=== PATIENT | male | born 1950 | race Caucasian/White ===

== ENCOUNTER 2019-02-11 16:27 | Inpatient (IN) | payer OTHER, MEDICARE ==
[~2019-02-11] VITALS: Ht 172.7 cm; Wt 65.6 kg
[~2019-02-11 16:27] MED LIST: ACET500 PO; Aspirin EC81 MG PO; DILT180ER PO; FISH OIL + D31 EACH PO; GABA300 PO; GENTEAL TEARS 015 ML BOTHEYES; Hair, Skin & N1 EACH PO; K-Phos Origina500 MG PO; LEVSOD75 PO; Oxybutynin Chlo10 MG PO; PANT20 PO; Prozac40 MG PO; TAMS.4ER PO; TRAM50 PO
[2019-02-11] MEDS ORDERED: Mag-Al Liquid30 ML PO (16:48)
[2019-02-11] MEDS ORDERED: CALCIUM 500 +1 EAC3 PO (16:49)
[2019-02-11] MEDS ORDERED: DICLOFENAC SOD100 G1 TOP (16:50)
[2019-02-11] MEDS ORDERED: Fish Oil 10001000 MG PO (18:43)
[2019-02-11 18:52] LABS: International Normalized Ratio 0.97; Prothrombin Time Results 10.3 Sec (9.7-11.5)
[2019-02-11 20:21] LABS: Hematocrit 37.8 % (37.0-53.0); Hemoglobin 12.7 g/dL (13.5-17.5); Mean Corpuscular HGB 28.9 pg (26.0-34.0); Mean Corpuscular HGB Conc 33.6 g/dL (31.5-36.5); Mean Corpuscular Volume 86 fL (80-100); Mean Platelet Volume 9.3 fL (9.1-12.4); Platelet Count 233 K/mm3 (150-400); RDW Coefficient Variation 11.9 % (11.7-14.2); RDW Standard Deviation 37.4 fL (35.1-46.3); White Blood Cell Count 6.07 K/mm3 (4.00-11.30)
[2019-02-11 20:39] LABS: Alanine Aminotransfer (ALT/SGP 25 U/L (12-78); Albumin, Blood 3.7 g/dL (3.4-5.0); Alk Phos 77 U/L (50-136); Anion Gap 4 mmol/L (6-16); Aspartate Aminotrans (AST/SGOT 33 U/L (12-37); Blood Urea Nitrogen 22 mg/dL (8-24); Bun/Creatinine Ratio 19.3 (12.0-20.0); CO2, Blood 41 mmol/L (21-32); Chloride, Blood 91 mmol/L (98-108); Creatinine, Blood 1.14 mg/dL (0.60-1.20); Globulin, Blood 3.7 g/dL (2.2-4.0); Glomerular Filtration Rate >60 (60-); Glucose, Blood 149 mg/dL (70-99); Potassium, Blood 3.1 mmol/L (3.5-5.5); Sodium, Blood 136 mmol/L (136-145); Total Protein, Blood 7.4 g/dL (6.4-8.2)
[2019-02-11 20:50] LABS: BAND PERCENT MAN 25 % (0-8); BASOPHILS PERCENT MAN 0 % (0-2); EOSINOPHILS PERCENT MAN 0 % (0-6); LYMPHOCYTES PERCENT MAN 5 % (21-46); METAMYELOCYTE ABSOLUTE MAN 0.06 K/mm3 (0.00-0.00); METAMYELOCYTE PERCENT MAN 1 % (0-0); MONOCYTES ABSOLUTE MAN 0.42 K/mm3 (0.16-1.47); MONOCYTES PERCENT MAN 7 % (4-13); NEUTROPHILS ABSOLUTE MAN 5.28 K/mm3 (1.96-9.15); SEG NEUTROPHILS PERCENT MAN 62 % (41-73); TOTAL CELLS COUNTED 100
[2019-02-12 00:37] LABS: Source, Urine Clean Catch
[2019-02-12 00:43] LABS: Bilirubin, Urine Neg (Neg); Blood, Urine 1+ (Neg); Glucose Qualitative, Urine Neg (Neg); Ketones, Urine Neg (Neg); Leukocyte Esterase, Urine Neg (Neg); Nitrite, Urine Neg (Neg); Protein, Urine 2+ (Neg); Urobilinogen, Urine NORM (Normal)
[2019-02-12 00:44] LABS: Appearance, Urine Clear (Clear); Color, Urine Yellow (P-Yellow)
[2019-02-12 00:52] LABS: Amorphous Mod (0-Heavy); Bacteria Not Seen /hpf; Granular Casts 0-2 /lpf (0); Red Blood Cells, Urine 0-2 /hpf (0-2); Squamous Epithelial Cells Not Seen /hpf (Few); White Blood Cells, Urine Not Seen /hpf (0-5)
[2019-02-12 00:57] LABS: Hematocrit 36.3 % (37.0-53.0); Mean Corpuscular HGB 28.1 pg (26.0-34.0); Mean Corpuscular HGB Conc 33.1 g/dL (31.5-36.5); Mean Corpuscular Volume 85 fL (80-100); Mean Platelet Volume 9.3 fL (9.1-12.4); Platelet Count 212 K/mm3 (150-400); RDW Coefficient Variation 12.2 % (11.7-14.2); RDW Standard Deviation 37.3 fL (35.1-46.3); Red Blood Cell Count 4.27 M/mm3 (4.30-5.90); White Blood Cell Count 3.98 K/mm3 (4.00-11.30)
[2019-02-12 01:16] LABS: Albumin, Blood 3.5 g/dL (3.4-5.0); Bilirubin, Total 1.9 mg/dL (0.1-1.0); Bun/Creatinine Ratio 18.6 (12.0-20.0); Calcium, Blood 8.7 mg/dL (8.5-10.1); Creatinine, Blood 1.29 mg/dL (0.60-1.20); Globulin, Blood 3.5 g/dL (2.2-4.0); Magnesium, Blood 4.1 mg/dL (1.6-2.4); Potassium, Blood 3.1 mmol/L (3.5-5.5)
[2019-02-12 01:21] LABS: BAND PERCENT MAN 32 % (0-8); BASOPHILS PERCENT MAN 0 % (0-2); EOSINOPHILS ABSOLUTE MAN 0.03 K/mm3 (0.00-0.68); EOSINOPHILS PERCENT MAN 1 % (0-6); LYMPHOCYTES ABSOLUTE MAN 0.27 K/mm3 (0.84-5.20); LYMPHOCYTES PERCENT MAN 7 % (21-46); MONOCYTES ABSOLUTE MAN 0.51 K/mm3 (0.16-1.47); MONOCYTES PERCENT MAN 13 % (4-13); NEUTROPHILS ABSOLUTE MAN 3.14 K/mm3 (1.96-9.15); SEG NEUTROPHILS PERCENT MAN 47 % (41-73); TOTAL CELLS COUNTED 100
--- NOTE | 2019-02-12 07:38 | NUR ---
a+o, pain not well controlled, ng tube draining green/brown fluid, using urinal in bed, call light in reach, xray and ekg done this am, comfort measures attempted to reduce pain, walking rounds done with day staff
--- NOTE | 2019-02-12 18:32 | NUR ---
SHIFT SUMMARY ADMITTED FOR SBO, MAY ALSO HAVE PANCREATITIS. PT IS FULL CODE. A SMALL BOWEL STUDY WAS PERFORMED TODAY. PT IS NPO EXCEPT FOR MEDS AND ICE CHIPS. PT HAS AN NG TUBE THAT WAS TURNED OFF WHEN RADIOLOGY RETRIEVED THE PT FOR IMAGING. PT'S FENTANYL WAS INCREASED TO 50 MCG TODAY. PT IS A&O X4. HE IS A 1 PERSON ASSIST FOR AT LEAST SHORT DISTANCES. PT IS MONITORED BY TELEMETRY/PCU NSR@86 BPM.
[2019-02-13 05:15] LABS: BASOPHILS ABSOLUTE AUTO 0.02 K/mm3 (0.00-0.23); BASOPHILS PERCENT AUTO 1 % (0-2); EOSINOPHILS ABSOLUTE AUTO 0.05 K/mm3 (0.00-0.68); EOSINOPHILS PERCENT AUTO 1 % (0-6); Hematocrit 40.6 % (37.0-53.0); Hemoglobin 12.7 g/dL (13.5-17.5); IMMATURE GRAN ABSOLUTE AUTO 0.01 K/mm3 (0.00-0.10); IMMATURE GRAN PERCENT AUTO 0 % (0-1); LYMPHOCYTES ABSOLUTE AUTO 0.68 K/mm3 (0.84-5.20); LYMPHOCYTES PERCENT AUTO 16 % (21-46); MONOCYTES ABSOLUTE AUTO 0.68 K/mm3 (0.16-1.47); MONOCYTES PERCENT AUTO 16 % (4-13); Mean Corpuscular HGB 28.3 pg (26.0-34.0); Mean Corpuscular HGB Conc 31.3 g/dL (31.5-36.5); Mean Platelet Volume 9.6 fL (9.1-12.4); NEUTROPHILS ABSOLUTE AUTO 2.78 K/mm3 (1.96-9.15); NEUTROPHILS PERCENT AUTO 66 % (41-73); Platelet Count 195 K/mm3 (150-400); RDW Coefficient Variation 12.3 % (11.7-14.2); RDW Standard Deviation 41.2 fL (35.1-46.3); Red Blood Cell Count 4.48 M/mm3 (4.30-5.90); White Blood Cell Count 4.22 K/mm3 (4.00-11.30)
[2019-02-13 05:17] LABS: Mean Corpuscular Volume 91 fL (80-100)
--- NOTE | 2019-02-13 05:28 | NUR ---
VSS, AFEBRILE, A/O, NG TUBE IN PLACE AND SET TO LOW INTT. SUCTION, PT SLEPT A FEW HOURS BETWEEN DOSES OF PAIN MEDICATION. NO N/V NOTED AFTER MEDICATION EARLY IN THE SHIFT. NO SIGNIFICANT CHANGES NOTED OVERNOC. WILL REPORT TO ON-COMING SHIFT.
[2019-02-13 05:43] LABS: Alanine Aminotransfer (ALT/SGP 34 U/L (12-78); Albumin, Blood 3.3 g/dL (3.4-5.0); Albumin/Globulin Ratio 0.8 (0.8-1.8); Alk Phos 70 U/L (50-136); Amylase, Blood 45 U/L (25-115); Anion Gap 6 mmol/L (6-16); Aspartate Aminotrans (AST/SGOT 40 U/L (12-37); Bilirubin, Total 1.8 mg/dL (0.1-1.0); Blood Urea Nitrogen 27 mg/dL (8-24); Bun/Creatinine Ratio 26.2 (12.0-20.0); CO2, Blood 35 mmol/L (21-32); Calcium, Blood 8.6 mg/dL (8.5-10.1); Chloride, Blood 103 mmol/L (98-108); Creatinine, Blood 1.03 mg/dL (0.60-1.20); Globulin, Blood 4.1 g/dL (2.2-4.0); Glomerular Filtration Rate >60 (60-); Glucose, Blood 107 mg/dL (70-99); Magnesium, Blood 3.3 mg/dL (1.6-2.4); Potassium, Blood 3.2 mmol/L (3.5-5.5); Sodium, Blood 144 mmol/L (136-145); Total Protein, Blood 7.4 g/dL (6.4-8.2)
--- NOTE | 2019-02-13 16:47 | NUR ---
ENEMA GIVEN ONE LIQUID BM. RED IN COLOR WITH ONE SOLID CHUNK THE SIZE OF A 50 CENT PIECE PASSED.
--- NOTE | 2019-02-13 17:14 | NUR ---
SHIFT SUMMARY ADMITTED FOR SBO. PT IS FULL CODE. DILAUDID ADDED TO EMAR TO HELP CONTROL ABD PAIN. PT HAS AN SBO W/ PANCREATIC INVOLVEMENT. A FLEET ENEMA WAS ADMINISTERED. MAROON WATERY FLUID PASSED W/ONE CHUNK THE SIZE OF A 50 CENT PIECE. PT IS STILL NPO. PT REPORTS DILAUDID WORKS BETTER THAN FENTANYL TO CONTROL HIS PAIN. PT HAS A HX OF SIGMOID VOLULUS AND ETOH.
[2019-02-14 04:57] LABS: BASOPHILS ABSOLUTE AUTO 0.01 K/mm3 (0.00-0.23); BASOPHILS PERCENT AUTO 0 % (0-2); EOSINOPHILS ABSOLUTE AUTO 0.09 K/mm3 (0.00-0.68); EOSINOPHILS PERCENT AUTO 2 % (0-6); Hematocrit 37.3 % (37.0-53.0); Hemoglobin 11.9 g/dL (13.5-17.5); IMMATURE GRAN ABSOLUTE AUTO 0.01 K/mm3 (0.00-0.10); IMMATURE GRAN PERCENT AUTO 0 % (0-1); LYMPHOCYTES ABSOLUTE AUTO 0.46 K/mm3 (0.84-5.20); LYMPHOCYTES PERCENT AUTO 12 % (21-46); MONOCYTES ABSOLUTE AUTO 0.52 K/mm3 (0.16-1.47); MONOCYTES PERCENT AUTO 13 % (4-13); Mean Corpuscular HGB Conc 31.9 g/dL (31.5-36.5); Mean Corpuscular Volume 91 fL (80-100); Mean Platelet Volume 9.5 fL (9.1-12.4); NEUTROPHILS ABSOLUTE AUTO 2.91 K/mm3 (1.96-9.15); NEUTROPHILS PERCENT AUTO 73 % (41-73); Platelet Count 184 K/mm3 (150-400); RDW Coefficient Variation 12.1 % (11.7-14.2); RDW Standard Deviation 40.7 fL (35.1-46.3); Red Blood Cell Count 4.11 M/mm3 (4.30-5.90)
--- NOTE | 2019-02-14 05:28 | NUR ---
VSS, AFEBRILE, A/O, NG TUBE TO LOW INT. SUCTIONS, PT SLEPT WELL OVER NOC, C/O ABD PAIN RESOLVED EASILY WITH PRN DILAUDID PER ORDER. NO SIGNIFICANT CHANGES NOTED. WILL REPORT TO ON-COMING SHIFT.
[2019-02-14 05:42] LABS: Amylase, Blood 233 U/L (25-115)
[2019-02-14 05:46] LABS: Alanine Aminotransfer (ALT/SGP 33 U/L (12-78); Albumin/Globulin Ratio 0.8 (0.8-1.8); Alk Phos 66 U/L (50-136); Anion Gap 7 mmol/L (6-16); Aspartate Aminotrans (AST/SGOT 26 U/L (12-37); Bilirubin, Total 1.5 mg/dL (0.1-1.0); Blood Urea Nitrogen 28 mg/dL (8-24); Bun/Creatinine Ratio 31.2 (12.0-20.0); CO2, Blood 31 mmol/L (21-32); Calcium, Blood 8.5 mg/dL (8.5-10.1); Chloride, Blood 112 mmol/L (98-108); Globulin, Blood 3.7 g/dL (2.2-4.0); Glomerular Filtration Rate >60 (60-); Glucose, Blood 96 mg/dL (70-99); Potassium, Blood 3.3 mmol/L (3.5-5.5); Sodium, Blood 150 mmol/L (136-145); Total Protein, Blood 6.7 g/dL (6.4-8.2)
--- NOTE | 2019-02-14 18:18 | NUR ---
SHIFT SUMMARY NO ACUTE CHANGES. DR. YIN MET WITH PATIENT THIS MORNING. PATIENT TO HAVE XRAY AND POSSIBLY SURGERY IN THE AM. PATIENT MEDICATED FOR PAIN SEVERAL TIMES THIS SHIFT. NG TUBE TO LOW INTERMITTENT SUCTION. OSHEA PLACED DUE TO RETENTION. CALL LIGHT IN REACH, WILL CONTINUE TO MONITOR.
[2019-02-15 05:13] LABS: BASOPHILS ABSOLUTE AUTO 0.01 K/mm3 (0.00-0.23); BASOPHILS PERCENT AUTO 0 % (0-2); EOSINOPHILS ABSOLUTE AUTO 0.04 K/mm3 (0.00-0.68); EOSINOPHILS PERCENT AUTO 2 % (0-6); Hematocrit 36.4 % (37.0-53.0); Hemoglobin 11.7 g/dL (13.5-17.5); IMMATURE GRAN ABSOLUTE AUTO 0.02 K/mm3 (0.00-0.10); IMMATURE GRAN PERCENT AUTO 1 % (0-1); LYMPHOCYTES ABSOLUTE AUTO 0.43 K/mm3 (0.84-5.20); LYMPHOCYTES PERCENT AUTO 19 % (21-46); MONOCYTES ABSOLUTE AUTO 0.36 K/mm3 (0.16-1.47); MONOCYTES PERCENT AUTO 16 % (4-13); Mean Corpuscular HGB 28.5 pg (26.0-34.0); Mean Corpuscular HGB Conc 32.1 g/dL (31.5-36.5); Mean Corpuscular Volume 89 fL (80-100); Mean Platelet Volume 9.6 fL (9.1-12.4); NEUTROPHILS ABSOLUTE AUTO 1.37 K/mm3 (1.96-9.15); NEUTROPHILS PERCENT AUTO 62 % (41-73); Platelet Count 185 K/mm3 (150-400); RDW Standard Deviation 39.1 fL (35.1-46.3); White Blood Cell Count 2.23 K/mm3 (4.00-11.30)
[2019-02-15 05:33] LABS: Albumin, Blood 2.9 g/dL (3.4-5.0); Anion Gap 7 mmol/L (6-16); Blood Urea Nitrogen 24 mg/dL (8-24); Bun/Creatinine Ratio 30.2 (12.0-20.0); CO2, Blood 29 mmol/L (21-32); Calcium, Blood 8.7 mg/dL (8.5-10.1); Chloride, Blood 112 mmol/L (98-108); Glomerular Filtration Rate >60 (60-); Glucose, Blood 153 mg/dL (70-99); Magnesium, Blood 2.5 mg/dL (1.6-2.4); Phosphorus, Blood 2.1 mg/dL (2.5-4.9); Potassium, Blood 3.4 mmol/L (3.5-5.5); Sodium, Blood 148 mmol/L (136-145)
--- NOTE | 2019-02-15 05:57 | NUR ---
SHIFT SUMMARY PT CONTINUED TO REPORT ABLE PAIN/DISCOMFORT THIS EVENING. RATING IT AT 6-8/10. MEDICATED EVERY 2-4 HOURS WITH 1 MG IV DILAUDID REQUESTED BY PT. NG TUBE IN PLACE, HOOKED UP TO LOW INTERMITTENT SUCTION. DRAINING A MODERATE AMOUNT WITH APPROX 500 ML OUT OF GREEN SLIGHTLY PINK GASTRIC FLUID. NO NAUSEA REPORTED. PT NPO EXCEPT ICE CHIPS. REPORTS HE IS TOO WEAK AND TERRIBLE FEELING TO GET OUT OF BED. OSHEA REMAINS IN PLACE. DRAINING LIGHT YELLOW URINE. PLAN FOR XRAYS THIS AM AND POSSIBLE SURGERY. AT BEDSIDE THIS AM. VSS. WILL CONTINUE TO MONITOR.
--- NOTE | 2019-02-15 11:07 | NUR ---
PT TRANSFERED PT TAKEN TO SURGERY AT 1030. PT IN STABLE CONDITION. HYDRALAZINE GIVEN TO HELP BRING DOWN BP. DELINQUENT TAX COLLECTOR ASSISTANT STATES PT IS TACHY. PT REFUSED ORAL MEDICATIONS THIS AM DUE TO WANTING HIS SUCTION TO CONTINUE. OTHER VITALS STABLE. BESIDE REPORT GIVEN TO SCOTT, THREAD MILLING MACHINE SET UP OPERATOR & LORENA RN. PERSONAL ITEMS DELIVERED TO 231 BY THIS RN. NO OTHER CHANGES IN ASSESSMENT BEFORE PT LEFT FOR SURGERY. 1 MG IV DILADID GIVEN FOR PAIN THIS AM.
--- NOTE | 2019-02-15 12:53 | NUR ---
PT FROM OR PT TO FLOOR FROM OR AT APPROX 1230. PT SLEEPING IN BED, COMFORTABLE. CALL LIGHT IN REACH.
--- NOTE | 2019-02-15 17:22 | NUR ---
SHIFT SUMMARY PT FROM OR AT 1236. NG TUBE ON LOW INTERMITENT SUCTION. PT HAD FEVER, NEW ORDER FOR TORODOL, GIVEN PER EMAR. PAIN AND FEVER MANAGED. SURGICAL DRESSING IN PLACE. WOUND VAC IN PLACE NO DRAINAGE AT THIS TIME. OSHEA IN PLACE.
--- NOTE | 2019-02-16 05:04 | NUR ---
SHIFT SUMMARY PT POD#1. AAOX4. DISCOMFORT CONTROLLED WITH 1MG IV DILAUDID X2 THIS SHIFT. NO NAUSEA/EMESIS. ABD INCISION WITH PREVENA C/D/I, NO DRAINAGE. ABD BINDER IN PLACE. OSHEA SECURE/DRAINING YELLOW. NGT WITH MODERATE AMOUNT GREEN OUT. PT RESTING WELL THIS AM. CALL LIGHT IN REACH + PT USES FOR ASSISTANCE.
[2019-02-16 05:05] LABS: Hematocrit 38.1 % (37.0-53.0); Mean Corpuscular HGB 28.1 pg (26.0-34.0); Mean Corpuscular HGB Conc 31.5 g/dL (31.5-36.5); Mean Corpuscular Volume 89 fL (80-100); Mean Platelet Volume 9.9 fL (9.1-12.4); Platelet Count 195 K/mm3 (150-400); RDW Coefficient Variation 12.1 % (11.7-14.2); RDW Standard Deviation 39.6 fL (35.1-46.3); Red Blood Cell Count 4.27 M/mm3 (4.30-5.90)
[2019-02-16 05:35] LABS: Albumin, Blood 2.7 g/dL (3.4-5.0); Anion Gap 7 mmol/L (6-16); Blood Urea Nitrogen 24 mg/dL (8-24); Bun/Creatinine Ratio 28.2 (12.0-20.0); CO2, Blood 28 mmol/L (21-32); Calcium, Blood 8.5 mg/dL (8.5-10.1); Chloride, Blood 114 mmol/L (98-108); Creatinine, Blood 0.85 mg/dL (0.60-1.20); Glomerular Filtration Rate >60 (60-); Glucose, Blood 126 mg/dL (70-99); Phosphorus, Blood 2.4 mg/dL (2.5-4.9); Potassium, Blood 3.5 mmol/L (3.5-5.5); Sodium, Blood 149 mmol/L (136-145)
[2019-02-16 05:40] LABS: BAND PERCENT MAN 20 % (0-8); BASOPHILS PERCENT MAN 0 % (0-2); EOSINOPHILS PERCENT MAN 0 % (0-6); LYMPHOCYTES ABSOLUTE MAN 0.57 K/mm3 (0.84-5.20); LYMPHOCYTES PERCENT MAN 17 % (21-46); MONOCYTES ABSOLUTE MAN 0.44 K/mm3 (0.16-1.47); MONOCYTES PERCENT MAN 13 % (4-13); NEUTROPHILS ABSOLUTE MAN 2.38 K/mm3 (1.96-9.15); SEG NEUTROPHILS PERCENT MAN 50 % (41-73); TOTAL CELLS COUNTED 100
--- NOTE | 2019-02-16 10:17 | NUR ---
hallucinations PT REPORTS BELIEVES DILAUDID IS CAUSING HALLUCINATIONS. REPORTS SEEING BEES IN ROOM AND ROOM IS CHANGING SIZE AND SHAPE. NOTIFED DR CARLSON AND REQUESTED DIFFERENT IV PAIN MEDICATION.
--- NOTE | 2019-02-16 18:29 | NUR ---
SUMMARY NO ACUTE CHANGES T/O SHIFT. PT'S NG OUTPUT MAINLY CLEAR FLUID. NG TO R NARES AND TO LIS. PT HAS C/O OF CROSS AND ABD PAIN T/O SHIFT. MEDICATED PER ORDERS FOR BOTH. PT HAS BEEN HYPERTENSIVE, DR AWARE AND CHANGED APRESOLINE TO SCHEDULED Q6. PT RESTING ON L SIDE AT THIS TIME. CALL LIGHT IN REACH.
[2019-02-17 05:17] LABS: BASOPHILS ABSOLUTE AUTO 0.02 K/mm3 (0.00-0.23); BASOPHILS PERCENT AUTO 0 % (0-2); Hematocrit 38.9 % (37.0-53.0); Hemoglobin 12.4 g/dL (13.5-17.5); LYMPHOCYTES PERCENT AUTO 14 % (21-46); MONOCYTES ABSOLUTE AUTO 0.53 K/mm3 (0.16-1.47); MONOCYTES PERCENT AUTO 10 % (4-13); Mean Corpuscular HGB 28.1 pg (26.0-34.0); Mean Corpuscular HGB Conc 31.9 g/dL (31.5-36.5); Mean Corpuscular Volume 88 fL (80-100); Mean Platelet Volume 10.2 fL (9.1-12.4); Platelet Count 233 K/mm3 (150-400); RDW Coefficient Variation 12.3 % (11.7-14.2); RDW Standard Deviation 39.5 fL (35.1-46.3); Red Blood Cell Count 4.42 M/mm3 (4.30-5.90); White Blood Cell Count 5.09 K/mm3 (4.00-11.30)
[2019-02-17 05:21] LABS: EOSINOPHILS ABSOLUTE AUTO 0.17 K/mm3 (0.00-0.68); EOSINOPHILS PERCENT AUTO 3 % (0-6); IMMATURE GRAN ABSOLUTE AUTO 0.07 K/mm3 (0.00-0.10); IMMATURE GRAN PERCENT AUTO 1 % (0-1); NEUTROPHILS PERCENT AUTO 71 % (41-73)
[2019-02-17 05:43] LABS: Albumin, Blood 2.5 g/dL (3.4-5.0); Anion Gap 8 mmol/L (6-16); Blood Urea Nitrogen 24 mg/dL (8-24); Bun/Creatinine Ratio 30.4 (12.0-20.0); CO2, Blood 25 mmol/L (21-32); Calcium, Blood 8.5 mg/dL (8.5-10.1); Chloride, Blood 112 mmol/L (98-108); Creatinine, Blood 0.79 mg/dL (0.60-1.20); Glomerular Filtration Rate >60 (60-); Glucose, Blood 122 mg/dL (70-99); Phosphorus, Blood 2.3 mg/dL (2.5-4.9); Potassium, Blood 3.3 mmol/L (3.5-5.5); Sodium, Blood 145 mmol/L (136-145)
[2019-02-17 05:49] LABS: BAND PERCENT MAN 8 % (0-8); BASOPHILS ABSOLUTE MAN 0.05 K/mm3 (0.00-0.23); BASOPHILS PERCENT MAN 1 % (0-2); EOSINOPHILS ABSOLUTE MAN 0.05 K/mm3 (0.00-0.68); EOSINOPHILS PERCENT MAN 1 % (0-6); LYMPHOCYTES ABSOLUTE MAN 0.55 K/mm3 (0.84-5.20); LYMPHOCYTES PERCENT MAN 11 % (21-46); METAMYELOCYTE ABSOLUTE MAN 0.05 K/mm3 (0.00-0.00); METAMYELOCYTE PERCENT MAN 1 % (0-0); MONOCYTES PERCENT MAN 8 % (4-13); MYELOCYTE PERCENT MAN 2 % (0-0); NEUTROPHILS ABSOLUTE MAN 3.86 K/mm3 (1.96-9.15); SEG NEUTROPHILS PERCENT MAN 68 % (41-73); TOTAL CELLS COUNTED 100
--- NOTE | 2019-02-17 06:39 | NUR ---
POD 2 S/P EXP LAP. PT BP REMAINED ELEVATED T/O NIGHT, HR TACHY LOW 100'S. PT DENIED CP/PRESSURE, DID C/O HEADACHE. SCHEDULED HYDRALAZINE GIVEN W/MINIMAL EFFECT NOTED. DRESSING CDI. PAIN MGD W/TORADOL W/REP RELIEF, PT DECLINING NARCOTIC MEDS. BT HYPO, NGT DRAINING CLEAR LIQ, PT DENIED N/V, REP NO FLATUS YET. DORIE MUÑOZ, CLINIMIX CONT PER ORDERS. PT USING CALL LIGHT FOR ASSISTANCE, WILL CONT TO MONITOR UNTIL REP GIVEN TO ONCOMING RN.
--- NOTE | 2019-02-17 14:08 | NUR ---
pt had advance directive [facility] with the [facility]. copy on chart and to medical records
--- NOTE | 2019-02-17 14:15 | NUR ---
Symptom assessment of patient . He has amild headache patient today which is unusual. No ringing in ears or balance disturbance. swallowing is moderate. He wears dentures and they are getting loose due to weight loss. no dyspnea but with NG breathing feels a little tight. Pt Feels tight and very sore in abdomen. Pt states he has PTSD and is anxious and has a startle response. He works out regularly and is anxious to get back to his routine. We reviewed his symptoma nd pain and recovery and what he has been to before. He is feeling more sore and painful today. We reviewed medications and recovery phase. We discussed taking the tylenol in low dose, we reviewed adjunctive therapies for diversiona and increasing mobility. suggested [facility] pain class for support. we reviewed visualization and massage and to see what [facility] will cover. We reviewed sleep hygiene and anexiety. He wants to speak to diety consult ordered.
--- NOTE | 2019-02-17 18:28 | NUR ---
SUMMARY NO ACUTE CHANGES T/O SHIFT. NG PRODUCING CLEARISH LIGHT [place] FLUID. DENIES NAUSEA. MAIN COMPLAINT DURING SHIFT WAS CROSS. MEDICATED PER ORDERS W/TORADOL. OSHEA CATH DC'D THIS EVENING PER ORDERS. IV FLUIDS INFUSING PER ORDERS. CALL LIGHT IN REACH.
[2019-02-18 05:11] LABS: BASOPHILS ABSOLUTE AUTO 0.02 K/mm3 (0.00-0.23); BASOPHILS PERCENT AUTO 0 % (0-2); EOSINOPHILS ABSOLUTE AUTO 0.23 K/mm3 (0.00-0.68); EOSINOPHILS PERCENT AUTO 3 % (0-6); Hematocrit 37.4 % (37.0-53.0); Hemoglobin 12.1 g/dL (13.5-17.5); IMMATURE GRAN ABSOLUTE AUTO 0.11 K/mm3 (0.00-0.10); IMMATURE GRAN PERCENT AUTO 2 % (0-1); LYMPHOCYTES ABSOLUTE AUTO 0.95 K/mm3 (0.84-5.20); LYMPHOCYTES PERCENT AUTO 14 % (21-46); MONOCYTES ABSOLUTE AUTO 0.53 K/mm3 (0.16-1.47); MONOCYTES PERCENT AUTO 8 % (4-13); Mean Corpuscular HGB 27.8 pg (26.0-34.0); Mean Corpuscular HGB Conc 32.4 g/dL (31.5-36.5); Mean Corpuscular Volume 86 fL (80-100); Mean Platelet Volume 10.1 fL (9.1-12.4); NEUTROPHILS ABSOLUTE AUTO 5.13 K/mm3 (1.96-9.15); NEUTROPHILS PERCENT AUTO 74 % (41-73); Platelet Count 227 K/mm3 (150-400); RDW Coefficient Variation 12.6 % (11.7-14.2); RDW Standard Deviation 39.2 fL (35.1-46.3); Red Blood Cell Count 4.36 M/mm3 (4.30-5.90); White Blood Cell Count 6.97 K/mm3 (4.00-11.30)
[2019-02-18 05:32] LABS: Albumin, Blood 2.4 g/dL (3.4-5.0); Anion Gap 8 mmol/L (6-16); Blood Urea Nitrogen 24 mg/dL (8-24); Bun/Creatinine Ratio 29.2 (12.0-20.0); CO2, Blood 27 mmol/L (21-32); Calcium, Blood 8.3 mg/dL (8.5-10.1); Chloride, Blood 111 mmol/L (98-108); Creatinine, Blood 0.82 mg/dL (0.60-1.20); Glomerular Filtration Rate >60 (60-); Glucose, Blood 115 mg/dL (70-99); Phosphorus, Blood 3.2 mg/dL (2.5-4.9); Potassium, Blood 3.1 mmol/L (3.5-5.5); Sodium, Blood 146 mmol/L (136-145)
--- NOTE | 2019-02-18 06:08 | NUR ---
POD 3 S/P EXP LAP. PT BR REMAINED ELEVATED, PT DENIED CP/PRESSURE/SOB. OTHER VSS. DRESSING CDI. PT REQ TORADOL AND TYLENOL ONLY FOR PAIN MGMT. NGT DRAINING 200ML CLEAR LIQ, PT REP PASSING FLATUS X1, DENIED N/V. PT USING URINAL TO VOID. CLINIMIX CONT PER ORDERS. PT DECLINING TO GET OOB THIS SHIFT, PT EDUCATED ON BENEFITS OF AMBULATION. PT USING CALL LIGHT FOR ASSISTANCE, WILL CONT TO MONITOR UNTIL REP GIVEN TO ONCOMING RN.
--- NOTE | 2019-02-18 13:53 | NUR ---
NG DR YIN IN TO SEE PATIENT. NG CLAMPED AT THIS TIME. DISCUSSED WITH PATIENT TO LET ME KNOW IF BECOMES NAUSEATED, INCREASED ABD PAIN OR BLOATING WITH NG CLAMPED
--- NOTE | 2019-02-18 17:52 | NUR ---
SUMMARY NG REMAINS CLAMPED SINCE 1353 AND PATIENT DENIES NAUSEA OR INCREASED ABD PAIN. PATIENT AMBULATED IN HALLS X2 AND SAT IN CHAIR X2. PAIN CONTROLLED WITH PO MEDS
[2019-02-19 04:49] LABS: BASOPHILS ABSOLUTE AUTO 0.06 K/mm3 (0.00-0.23); BASOPHILS PERCENT AUTO 1 % (0-2); EOSINOPHILS ABSOLUTE AUTO 0.27 K/mm3 (0.00-0.68); EOSINOPHILS PERCENT AUTO 3 % (0-6); Hematocrit 37.5 % (37.0-53.0); Hemoglobin 12.2 g/dL (13.5-17.5); IMMATURE GRAN ABSOLUTE AUTO 0.21 K/mm3 (0.00-0.10); IMMATURE GRAN PERCENT AUTO 2 % (0-1); LYMPHOCYTES ABSOLUTE AUTO 1.34 K/mm3 (0.84-5.20); LYMPHOCYTES PERCENT AUTO 15 % (21-46); MONOCYTES ABSOLUTE AUTO 0.53 K/mm3 (0.16-1.47); MONOCYTES PERCENT AUTO 6 % (4-13); Mean Corpuscular HGB 28.4 pg (26.0-34.0); Mean Corpuscular HGB Conc 32.5 g/dL (31.5-36.5); Mean Corpuscular Volume 87 fL (80-100); Mean Platelet Volume 10.2 fL (9.1-12.4); NEUTROPHILS PERCENT AUTO 74 % (41-73); Platelet Count 258 K/mm3 (150-400); RDW Coefficient Variation 12.7 % (11.7-14.2); RDW Standard Deviation 40.3 fL (35.1-46.3); White Blood Cell Count 9.11 K/mm3 (4.00-11.30)
[2019-02-19 05:08] LABS: Albumin, Blood 2.5 g/dL (3.4-5.0); Anion Gap 8 mmol/L (6-16); Blood Urea Nitrogen 24 mg/dL (8-24); Bun/Creatinine Ratio 31.2 (12.0-20.0); CO2, Blood 25 mmol/L (21-32); Calcium, Blood 8.2 mg/dL (8.5-10.1); Chloride, Blood 110 mmol/L (98-108); Creatinine, Blood 0.77 mg/dL (0.60-1.20); Glomerular Filtration Rate >60 (60-); Glucose, Blood 112 mg/dL (70-99); Phosphorus, Blood 2.8 mg/dL (2.5-4.9); Potassium, Blood 3.1 mmol/L (3.5-5.5); Sodium, Blood 143 mmol/L (136-145)
--- NOTE | 2019-02-19 07:37 | NUR ---
SHIFT SUMMARY PT A&O X4 T/O SHIFT. POD#4 LYSIS OF ABD ADHESIONS; PREVENA SEAL INTACT. ABD SOFT. NPO EXCEPT ICE CHIP AND MEDS PER ORDERS. PAIN IN ABD WELL MANAGED; PT REPORTED "HEADACHE" T/O SHIFT; HOT/COOL CLOTHES TO HEAD FOR COMFORT PER PT REQUESTS. NGT CLAMED PER ORDERS; PT TOLERATED WELL. BP MANAGED PER EMAR. RA; PT DENIES SOB; TELEMETRY IN PLACE; NSR PER DAY CARE DIRECTOR. SCD'S TO BLE'S. CALL LIGHT IN REACH; PT DEMONSTRATES USE. REPORT GIVEN TO DAY SHIFT RN.
--- NOTE | 2019-02-19 13:56 | NUR ---
NG TUBE D/C'D AT THIS TIME PER DR YIN'S V.O. PATIENT TOLERATED WELL.
--- NOTE | 2019-02-20 05:27 | NUR ---
SHIFT SUMMARY PT A&O X 4 T/O SHIFT. NO ACUTE CHANGES. POD#5 LYSIS OF ADHESIONS; ABD SOFT; PT DENIED NAUSEA T/O SHIFT. ABD PAIN AND PT C/O "HEAD ACHE" MANAGED PER EMAR. PT BP MANAGED PER EMAR. TELEMETRY IN PLACE; NSR/ST T/O SHIFT. HUMAN CAPITAL CONSULTANT REPORTED PT HR INCREASED TO 120 X1; PT AMBULATING AT TIME; HR DECREASED TO SR UNDER 100 WITH REST. PT TOLERATING CLEARS WELL. SCD'S TO BLE'S. CALL LIGHT IN REACH; PT DEMONSTRATES USE. WCTM UNTIL REPORT TO DAY SHIFT RN.
[2019-02-20 06:15] LABS: Albumin, Blood 2.3 g/dL (3.4-5.0); Anion Gap 8 mmol/L (6-16); Blood Urea Nitrogen 23 mg/dL (8-24); CO2, Blood 24 mmol/L (21-32); Calcium, Blood 7.9 mg/dL (8.5-10.1); Chloride, Blood 106 mmol/L (98-108); Creatinine, Blood 0.82 mg/dL (0.60-1.20); Glomerular Filtration Rate >60 (60-); Glucose, Blood 109 mg/dL (70-99); Phosphorus, Blood 2.8 mg/dL (2.5-4.9); Potassium, Blood 3.1 mmol/L (3.5-5.5); Sodium, Blood 138 mmol/L (136-145)
--- NOTE | 2019-02-20 18:59 | NUR ---
SHIFT SUMMARY PATIENT IMPROVED T/O SHIFT. CROSS RESOLVED. UP TO CHAIR, THEN AMBULATED IN HALLS. VOIDING, HAD BM. + FLATUS. TOLERATING CL W/O C/O. PROVENA WOUND VAC D/C'D BY DR YIN TODAY. INCISION W/ VICKY, INTACT, CLEAR. NO C/O AT THIS TIME. D/C ORDERS REC'D FOR TOMORROW.
[2019-02-21 04:26] LABS: BASOPHILS ABSOLUTE AUTO 0.03 K/mm3 (0.00-0.23); BASOPHILS PERCENT AUTO 0 % (0-2); EOSINOPHILS ABSOLUTE AUTO 0.23 K/mm3 (0.00-0.68); EOSINOPHILS PERCENT AUTO 3 % (0-6); Hematocrit 33.8 % (37.0-53.0); Hemoglobin 11.1 g/dL (13.5-17.5); IMMATURE GRAN ABSOLUTE AUTO 0.25 K/mm3 (0.00-0.10); IMMATURE GRAN PERCENT AUTO 3 % (0-1); LYMPHOCYTES ABSOLUTE AUTO 0.92 K/mm3 (0.84-5.20); LYMPHOCYTES PERCENT AUTO 11 % (21-46); MONOCYTES ABSOLUTE AUTO 0.49 K/mm3 (0.16-1.47); MONOCYTES PERCENT AUTO 6 % (4-13); Mean Corpuscular HGB Conc 32.8 g/dL (31.5-36.5); Mean Corpuscular Volume 85 fL (80-100); Mean Platelet Volume 10.2 fL (9.1-12.4); NEUTROPHILS ABSOLUTE AUTO 6.54 K/mm3 (1.96-9.15); NEUTROPHILS PERCENT AUTO 77 % (41-73); Platelet Count 244 K/mm3 (150-400); RDW Coefficient Variation 12.3 % (11.7-14.2); RDW Standard Deviation 37.8 fL (35.1-46.3); Red Blood Cell Count 3.96 M/mm3 (4.30-5.90); White Blood Cell Count 8.46 K/mm3 (4.00-11.30)
[2019-02-21 04:49] LABS: Albumin, Blood 2.3 g/dL (3.4-5.0); Anion Gap 7 mmol/L (6-16); Blood Urea Nitrogen 15 mg/dL (8-24); Bun/Creatinine Ratio 18.2 (12.0-20.0); CO2, Blood 24 mmol/L (21-32); Calcium, Blood 7.9 mg/dL (8.5-10.1); Chloride, Blood 106 mmol/L (98-108); Creatinine, Blood 0.83 mg/dL (0.60-1.20); Glomerular Filtration Rate >60 (60-); Glucose, Blood 95 mg/dL (70-99); Magnesium, Blood 1.9 mg/dL (1.6-2.4); Phosphorus, Blood 2.7 mg/dL (2.5-4.9); Potassium, Blood 3.4 mmol/L (3.5-5.5); Sodium, Blood 137 mmol/L (136-145)
--- NOTE | 2019-02-21 07:51 | NUR ---
SUMMARY PT VOIDING AND HAVING FORMED BMS. NO C/O NAUSEA. TAKING PO TRAMADOL FOR H/A AND GENERALIZED DISCOMFORT. ABD INC CLR AND INTACT. PT HAS DISCHARGE ORDERS PER DR YIN. PT WITH LO GRADE TEMP TONIGHT. I ADVISED DR STEVENS OF THIS WHEN ALREADY SPEAKING TO HIM. PT RECEIVING IV MEDS Q 6 HR FOR HTN. DAY RN AGREES TO FOLLOW UP WITH HOSPITALIST REGARDING THEIR WISHES /ORDERS REGARDING DISCHARGE.
--- NOTE | 2019-02-21 08:00 | NUR ---
PT SLEEPING WAKES TO VERBAL STIMULI REPORTS H/A AND HAVING SWEATS AND CHILLS THRU THE NIGHT ASKING IF HE CAN HAVE SOME ULTRAM STATED HIS ABD DOES NOT HURT
--- NOTE | 2019-02-21 10:58 | NUR ---
DR RECINOS BY TO SEE PT STATED HIS H/A IS A LITTLE BETTER AMB IN HALLWAY AFEBRILE AT THIS TIME SITTING UP IN CHAIR
--- NOTE | 2019-02-21 13:58 | NUR ---
pt given salt water to swish and spit for sore throat earlier gave pt ultram updated dr hendricks on pt's fever
--- NOTE | 2019-02-21 15:30 | NUR ---
pt stated he feels good still no h/a just sore throat req soft food for tonight
--- NOTE | 2019-02-21 18:43 | NUR ---
pt taking his diet slowy no nausea just sore throat
[2019-02-22 04:29] LABS: BASOPHILS ABSOLUTE AUTO 0.02 K/mm3 (0.00-0.23); BASOPHILS PERCENT AUTO 0 % (0-2); EOSINOPHILS ABSOLUTE AUTO 0.13 K/mm3 (0.00-0.68); EOSINOPHILS PERCENT AUTO 3 % (0-6); Hematocrit 31.3 % (37.0-53.0); Hemoglobin 10.4 g/dL (13.5-17.5); IMMATURE GRAN ABSOLUTE AUTO 0.22 K/mm3 (0.00-0.10); IMMATURE GRAN PERCENT AUTO 4 % (0-1); LYMPHOCYTES ABSOLUTE AUTO 0.82 K/mm3 (0.84-5.20); LYMPHOCYTES PERCENT AUTO 16 % (21-46); MONOCYTES ABSOLUTE AUTO 0.39 K/mm3 (0.16-1.47); MONOCYTES PERCENT AUTO 8 % (4-13); Mean Corpuscular HGB 28.3 pg (26.0-34.0); Mean Corpuscular HGB Conc 33.2 g/dL (31.5-36.5); Mean Corpuscular Volume 85 fL (80-100); Mean Platelet Volume 10.4 fL (9.1-12.4); NEUTROPHILS PERCENT AUTO 70 % (41-73); Platelet Count 229 K/mm3 (150-400); RDW Coefficient Variation 12.3 % (11.7-14.2); RDW Standard Deviation 37.6 fL (35.1-46.3); Red Blood Cell Count 3.68 M/mm3 (4.30-5.90); White Blood Cell Count 5.18 K/mm3 (4.00-11.30)
[2019-02-22 04:42] LABS: Anion Gap 6 mmol/L (6-16); Blood Urea Nitrogen 11 mg/dL (8-24); Bun/Creatinine Ratio 12.9 (12.0-20.0); CO2, Blood 27 mmol/L (21-32); Chloride, Blood 106 mmol/L (98-108); Creatinine, Blood 0.85 mg/dL (0.60-1.20); Glomerular Filtration Rate >60 (60-); Glucose, Blood 87 mg/dL (70-99); Potassium, Blood 3.7 mmol/L (3.5-5.5); Sodium, Blood 139 mmol/L (136-145)
--- NOTE | 2019-02-22 04:45 | NUR ---
PT WITH LOW GRADE TEMP X 1 TONIGHT.WHEN PT WOKE FROM SLEEPING IN BED WITH MULTIPLE BLANKETS PULLED UP OVER HIS HEAD.I REMOVED EXTRA BLANKETS AND ENC CONTINUED CDB I.S.W/A.TEMP RETURNED WNL SHORTLY AFTER.PT REPORTED ANXIETY.MEDICATED WITH [facility] PER HIS REQUEST IN ADDITION TO ULTRAM FOR COMPLAINT OF H/A.I SPOKE WITH DR KAMILAH FERNANDEZ REGARDING ROUTINE Q 6 HR ORDER FOR APRESOLINE WITH PT PLANNING DISCHARGE. PT CONTINUED HYPERTENSIVE. 161/80. DR MERCEDES ROUTINE HYDRALAZINE AND ORDERED PRN WITH PARAMETERS.SO FAR THIS SHIFT, NOT REQUIRING PRN HYDRALAZINE BASED ON PARAMETERS. PT REPORTING ATIV[facility] AND ULTRAM WORKING WELL. PT HAS SLEPT QUIETLY AFTER MEDS.
--- NOTE | 2019-02-22 06:10 | NUR ---
SUMMARY PT RESTING AT THIS TIME.HOPING TO GO HOME TODAY.
[2019-02-22] MEDS ORDERED: TRAM50 PO (08:38)
--- NOTE | 2019-02-22 12:08 | NUR ---
DISCHARGE INSTRUCTIONS REVIEWED WITH PT VERBALZED RX GIVEN NO ACUTE CHANGES PT DRESSED WANTING TO EAT LUNCH
--- NOTE | 2019-02-22 12:15 | NUR ---
wc escort to car
== END 2019-02-22 12:15 | disposition home or self-care (01) | DRG 335 ==
LOC: ER 16:27 → SURS 19:38 → MEDS 19:38 → SURS 02-15 10:38
PROVIDERS: Emergency Medicine; Family Medicine; Internal Medicine; Surgery; ADMIT Family Medicine
PROC: 0DNA0ZZ Release Jejunum, Open Approach (ICD-10-PCS; principal; 2019-02-15 10:45)
DX: K56.50 Intestinal adhesions [bands], unspecified as to partial versus complete obstruction (principal); K85.90 Acute pancreatitis without necrosis or infection, unspecified; E87.0 Hyperosmolality and hypernatremia; J98.11 Atelectasis; N13.30 Unspecified hydronephrosis; R50.82 Postprocedural fever; E87.6 Hypokalemia; E83.39 Other disorders of phosphorus metabolism; I10 Essential (primary) hypertension; D72.819 Decreased white blood cell count, unspecified; D64.9 Anemia, unspecified; K21.9 Gastro-esophageal reflux disease without esophagitis; Z85.46 Personal history of malignant neoplasm of prostate; E03.9 Hypothyroidism, unspecified; R00.0 Tachycardia, unspecified
CPT/HCPCS: 36415; 71045; 74018; 74022; 74250; 76705; 80048; 80053; 80069; 81001; 82150; 83605; 83690; 83735; 84484; 85025; 85610; 85730; 87040; 93005; 93010; 96361; 96374; 99285-25; C1751; C9113; J0295; J0360; J0780; J1170; J1650; J1885; J1940; J2060; J2405; J3010; J3480; J7030; J7050; J7060; Q9963

== ENCOUNTER 2025-07-27 07:13 | Day surgery (SDC) | payer OTHER ==
[~2025-07-27] VITALS: Ht 172.7 cm; Wt 64.0 kg
[2025-07-27] VITALS (10 sets, daily range): BP systolic 134–178; BP diastolic 76–95
[~2025-07-27 07:13] MED LIST changes: +BUSPIRONE HCL30 M1 PO; +CALCIUM 500 +1 EAC3 PO; +DICLOFENAC SOD100 G1 TOP; +Fish Oil 10001000 MG PO; +Mag-Al Liquid30 ML PO; +TOLTERODINE TART4 MG PO; +ZYRTEC10 M1 PO
[2025-07-27] MEDS ORDERED: CeFAZolin Sodium 2,000 MG in NS 100 ML IV SCH (07:45)
[2025-07-27] MEDS ORDERED: Bupivacaine 0.5% HCl 5 MG/ML 30MLVIAL ONE (08:27)
--- NOTE | 2025-07-27 08:40 | NUR ---
Ambulatory in Day Surgery. Patient confirms NPO status and agrees with scheduled surgery. History, Chart, Medications and Allergies reviewed before start of procedure. Patient reports completing Chlorhexadine shower X2 prior to admission to hospital. Surgical site prepped with 2% Chlorhexidine cloth wipe. Patient States Post-Procedure ride home has been arranged. Glasses/dentures taken to PACU with pt stickers on them.
[2025-07-27] MEDS ORDERED: FentaNYL Citrate 50 MCG/ML 2 ML Injection ONE (08:42)
[2025-07-27] MEDS ORDERED: Ketorolac Tromethamine 30mg Vial ONE (08:49)
[2025-07-27] MEDS ORDERED: Ondansetron HCl 2 MG / ML 2ML Vial ONE (08:49)
[2025-07-27] MEDS ORDERED: Dexamethasone Sod Phos 10 MG/ML 1ML VIAL ONE (08:49)
[2025-07-27] MEDS ORDERED: HYDROmorphone HCl/Pf 1MG SYR ONE (08:54)
[2025-07-27] MEDS ORDERED: Metoclopramide HCl 5MG / ML 2ML Vial IV PRN (08:55)
[2025-07-27] MEDS ORDERED: Morphine Sulfate 4 MG/1 ML Injection IV PRN (08:55)
[2025-07-27] MEDS ORDERED: Albuterol 2.5 MG/3 ML VIAL INH PRN (08:55)
[2025-07-27] MEDS ORDERED: Ondansetron HCl 2 MG / ML 2ML Vial IV PRN (08:55)
[2025-07-27] MEDS ORDERED: HYDROmorphone HCl/Pf 1MG SYR IV PRN (09:00)
[2025-07-27] MEDS ORDERED: FentaNYL Citrate 50 MCG/ML 2 ML Injection IV PRN ×2 (09:00)
[2025-07-27] MEDS ORDERED: Phenylephrine HCl 100 MCG/ML-NS 10MLSYR (1MG/10ML) ONE (09:01)
[2025-07-27] MEDS ORDERED: Glycopyrrolate 0.2 MG/ML 5ML VIAL ONE (09:01)
[2025-07-27] MEDS ORDERED: OxyCODONE 5 mg/Acetamin 325 mg TABLET PO PRN (10:35)
--- NOTE | 2025-07-27 12:03 | NUR ---
Discharge instructions reviewed with patient. Patient verbalizes understanding. Copy given to patient to take home. Brett-wrap c/d/i. Prescription placed in discharge folder. Patient States Post-Procedure ride home has been arranged. Discharged via wheelchair to private car for ride home.
== END 2025-07-27 12:05 | disposition home or self-care (01) ==
LOC: ORSCMMR 07:13 → ORD 08:45 → ORSCMMR 12:05
PROVIDERS: Surgery
PROC: 0JBG0ZX Excision of Right Lower Arm Subcutaneous Tissue and Fascia, Open Approach, Diagnostic (ICD-10-PCS; principal; 2025-07-27 08:45)
DX: D17.21 Benign lipomatous neoplasm of skin and subcutaneous tissue of right arm (principal); I10 Essential (primary) hypertension; K21.9 Gastro-esophageal reflux disease without esophagitis; Z79.899 Other long term (current) drug therapy
CPT/HCPCS: 88304; J0690; J1100; J1171; J1885; J2371; J2405; J2704; J3010; J7120